=== PATIENT | female | born 1980 | race African-American/Black ===

== ENCOUNTER 2016-04-20 09:48 | Emergency (ER) | payer MEDICARE, MEDICAID ==
[~2016-04-20] VITALS: Ht 167.6 cm; Wt 74.8 kg
[~2016-04-20 09:48] MED LIST: ACETAMINOPHEN-1 EAC2 ORAL; ALBUTEROL SULF8.5 GM INH; BENADRYL ITCH28.3 G1 TOPIC; BENADRYL25 M1 PO; BENADRYL25 MG PO; FLONASE1 SPRAYS NASAL; LEVAQUIN500 MG ORAL; METRONIDAZOLE500 MG ORAL; NORCO 10-325 T1 EACH PO; NORCO 5-325 TA1 EACH ORAL; NORCO 5/3251 TAB ORAL; PHENERGAN25 M1 PO; PREDNISONE20 MG PO; TRAMADOL HCL50 MG ORAL; TYLENOL #31 TAB PO; VICODIN1 TAB PO; ZITHROMAX250 MG PO
[2016-04-20] MEDS ORDERED: NKM (09:58)
--- NOTE | 2016-04-20 10:15 | Emergency Room Report ---
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 And has multiple falls She feels that her legs essentially tripped on each other and she fell to the left side She also complained of headache Fairly diffuse denies any loss of consciousness denies any chest pain or shortness of breath Head and neck pain are 4/10 without other radiation Allergies: Coded Allergies: ASPIRIN (Verified Allergy, Unknown, 04/20/16) IBUPROFEN (Verified Allergy, Unknown, 04/20/16) PENICILLINS (Verified Allergy, Unknown, 04/20/16) Patient History Past Medical History: see triage record Pertinent Family History: none Last Menstrual Period: april 09 Now: No : 0 Para: 0 Reviewed Nursing Documentation: PMH: Agreed, PSxH: Agreed Nursing Documentation-PMH Hx Asthma: Yes Hx Gastrointestinal Problems: Yes - cerbral palsy migraines,ACID REFLUX Hx Neurological Problems: Yes - cerebral palsy, migraine Review of Systems All Other Systems: negative except mentioned in HPI Physical Exam Vital Signs Date Time Temp Pulse Resp B/P Pulse Ox O2 Delivery O2 Flow Rate FiO2 04/20/16 09:53 98.1 81 18 124/85 99 Sp02 EP Interpretation: reviewed, normal General Appearance: well appearing, no apparent distress Head: normocephalic, atraumatic Eyes: bilateral eye EOMI, bilateral eye PERRL ENT: hearing grossly normal, normal pharynx, TMs + canals normal, uvula midline , other - Poor dentition Neck: full range of motion, supple, no meningismus, no bony tend - The patient was uncomfortable on palpation left paracervical area C3-4-5 Respiratory: lungs clear, normal breath sounds, no rhonchi, no respiratory distress, no retraction, no accessory muscle use Cardiovascular #1: normal peripheral pulses, regular rate, rhythm, no edema, no gallop, no JVD, no murmur Gastrointestinal: normal bowel sounds, non tender, soft, no mass, no organomegaly, non-distended, no guarding, no hernia, no pulsatile mass, no rebound Genitourinary: no CVA tenderness Musculoskeletal: other - Patient has chronic findings with her cerebral palsy, has a shuffling gait Neurologic: oriented x3, responsive, sensory intact Psychiatric: mood/affect normal Skin: normal color, no rash, warm/dry, palpation normal Lymphatic: normal inspection, no adenopathy Medical Decision Making Diagnostic Impression: Primary Impression: Dizziness Additional Impression: Neck sprain ER Course Patient's imaging study was benign Patient continues to do well she has had multiple medications at different facilities I did discuss with her the safety in prescription campaign And the patient will have close outpatient followup Other X-Ray Diagnostic Results Other X-Ray Diagnostic Results : EP Interpretation: Yes Findings: no fractures, no dislocation, no soft tissue swelling Number of Views: 3 - Limited three-view C-spine Last Vital Signs Date Time Temp Pulse Resp B/P Pulse Ox O2 Delivery O2 Flow Rate FiO2 04/20/16 09:53 98.1 81 18 124/85 99 Status: improved Disposition: HOME, SELF-CARE Condition: Improved Scripts Acetaminophen With Codeine (T#3) (TYLENOL #3 TAB*) Y Tab 1 TAB ORAL Q8H Y for For Pain, #5 TAB Prov: FLORIDA PADILLA D.O. 04/20/16 Additional Instructions: Patient is provided with the discharge instructions notified to follow up with primary doctor in the next 2-3 days otherwise return to the er with any worsening symptoms. FLORIDA PADILLA D.O. Apr 20, 2016 10:15
[2016-04-20 10:26] VITALS: BP 124/85
[2016-04-20] MEDS ORDERED: Norco 5mg/325mg tab ORAL ONE (10:30)
[2016-04-20] MEDS ORDERED: ACETAMINOPHEN-1 EAC1 ORAL (10:51)
[2016-04-20 10:57] VITALS: BP 122/85
--- NOTE | 2016-04-20 11:09 | Diagnostic Imaging Report ---
Indication: Neck Pain Findings: 3 views of the cervical spine were obtained. Mild degenerative changes of the cervical spine are demonstrated. This is characterized by vertebral endplate osteophyte formation and narrowing of intervertebral discs. There is no acute fracture obviously identified. Alignment is normal. The open-mouth odontoid view shows an intact dens and good alignment of the lateral masses with respect to the body of C2. There is no soft tissue swelling. Impression: Mild spondylosis The study is limited by motion
== END 2016-04-20 11:01 | disposition home or self-care (01) ==
LOC: EMR 10:16
DX: R42 Dizziness and giddiness (principal); S16.1XXA Strain of muscle, fascia and tendon at neck level, initial encounter; W01.0XXA Fall on same level from slipping, tripping and stumbling without subsequent striking against object, initial encounter; Y92.9 Unspecified place or not applicable; Z88.0 Allergy status to penicillin; Z87.19 Personal history of other diseases of the digestive system; R51 Headache
CPT/HCPCS: 72040; 99283

== ENCOUNTER 2016-05-21 17:47 | Emergency (ER) | payer MEDICARE, MEDICAID ==
[~2016-05-21] VITALS: Ht 167.6 cm; Wt 74.8 kg
[~2016-05-21 17:47] MED LIST changes: +ACETAMINOPHEN-1 EAC1 ORAL; +NKM
[2016-05-21 18:03] VITALS: BP 149/110
[2016-05-21 18:42] LABS: APPEARANCE,URINE CLOUDY; KETONES,URINE NEGATIVE (NEGATIVE); LEUKOCYTE ESTERASE ,URINE 3+ (NEGATIVE); NITRITE,URINE NEGATIVE (NEGATIVE); PH,URINE 6 (4.5-8.0); PROTEIN,URINE 1+ (NEGATIVE); UROBILINOGEN,URINE NORMAL MG/DL (0.0-1.0)
[2016-05-21 18:48] LABS: BACTERIA,URINE MANY /HPF; SQUAMOUS EPITHELIAL CELL,UR MANY /LPF (NONE/OCC); WBC,URINE 15-20 /HPF (0 - 2)
[2016-05-21] MEDS ORDERED: PREDNISONE50 MG ORAL (19:11)
[2016-05-21] MEDS ORDERED: BROMFED DM COU118 ML PO (19:11)
[2016-05-21] MEDS ORDERED: ZYRTEC10 MG ORAL (19:11)
[2016-05-21] MEDS ORDERED: FLONASE ALLERG9.9 ML NS (19:11)
--- NOTE | 2016-05-21 19:13 | Emergency Room Report ---
History of Present Illness General Chief Complaint: General Complaint Source: Patient Present Illness HPI 35-year-old who complains of URI sxs x 2 days. Assoc sxs include sore throat, neck pain, low back pain, cough d/t post nasal drip, nasal congestion, facial pain and pressure, bilateral ear pain, pain behind the left ear that travels down to the neck, body aches, and chills. Patient states that 2000 mg of Tylenol at 2 PM without improvement of symptoms. States that she's taking any other medications that there are no other physical complaints at this time. Denies any current n/v/f/c/d, abd pain, CP, SOB or headache. Allergies: Coded Allergies: ASPIRIN (Verified Allergy, Unknown, 04/20/16) IBUPROFEN (Verified Allergy, Unknown, 04/20/16) PENICILLINS (Verified Allergy, Unknown, 04/20/16) Patient History Past Medical History: see triage record Past Surgical History: none Pertinent Family History: none Last Menstrual Period: 04/04/16 Now: No Immunizations: UTD Reviewed Nursing Documentation: PMH: Agreed, PSxH: Agreed Nursing Documentation-PMH Past Medical History: No History, Except For Hx Asthma: Yes Hx Gastrointestinal Problems: Yes - cerbral palsy migraines,ACID REFLUX Review of Systems All Other Systems: negative except mentioned in HPI Physical Exam Vital Signs Date Time Temp Pulse Resp B/P Pulse Ox O2 Delivery O2 Flow Rate FiO2 05/21/16 17:55 98.1 87 15 149/110 100 Room Air Sp02 EP Interpretation: reviewed, normal General Appearance: no apparent distress, alert, GCS 15, non-toxic Head: normocephalic, atraumatic Eyes: bilateral eye PERRL, bilateral eye normal inspection ENT: hearing grossly normal, normal pharynx, no angioedema, normal voice, TMs + canals normal, uvula midline Neck: full range of motion, supple/symm/no masses, tender - palpation of the neck Respiratory: chest non-tender, lungs clear, normal breath sounds, speaking full sentences Cardiovascular #1: regular rate, rhythm, no edema Gastrointestinal: non tender, soft Rectal: deferred Genitourinary: normal inspection, no CVA tenderness Musculoskeletal: back normal, gait/station normal, normal range of motion, non- tender, calf tenderness Neurologic: alert, oriented x3, responsive, foreign agent III-XII nml as tested, motor strength/tone normal, sensory intact, speech normal, no Babinski Psychiatric: judgement/insight normal, memory normal, mood/affect normal, no suicidal/homicidal ideation Skin: normal color, no rash, warm/dry, well hydrated Lymphatic: no adenopathy Medical Decision Making PA Attestation Dr. Turner is my supervising physician with whom patient management has been discussed with. Diagnostic Impression: Primary Impression: Upper respiratory tract infection Qualified Codes: J06.9 - Acute upper respiratory infection, unspecified; B97.89 - Other viral agents as the cause of diseases classified elsewhere Additional Impressions: Sinus pain Urinary tract infection ER Course Pt. presents to the ED c/o of neck pain, cough and congestion Ddx considered but are not limited to meningitis, bronchitis, pneumonia, viral upper respiratory tract infection Vital signs: are WNL, pt. is afebrile H&PE are most consistent with viral upper respiratory tract infection ORDERS: CT Head w/o contrast, UA, Urine Preg ED INTERVENTIONS: Tylenol 1000mg DISCHARGE: At this time pt. is stable for d/c to home. Will provide printed patient care instructions, and any necessary prescriptions. Care plan and follow up instructions have been discussed with the patient prior to discharge. Laboratory Tests Test 05/21/16 18:30 Urine Color Yellow Urine Appearance Cloudy Urine pH 6 (4.5-8.0) Urine Specific [place] 1.015 (1.005-1.035) Urine Protein 1+ (NEGATIVE) H Urine Glucose (UA) Negative (NEGATIVE) Urine Ketones Negative (NEGATIVE) Urine Occult Blood 1+ (NEGATIVE) H Urine Nitrite Negative (NEGATIVE) Urine Bilirubin Negative (NEGATIVE) Urine Urobilinogen Normal MG/DL (0.0-1.0) Urine Leukocyte Esterase 3+ (NEGATIVE) H Urine RBC 2-4 /HPF (0 - 2) H Urine WBC 15-20 /HPF (0 - 2) H Urine Squamous Epithelial Cells Many /LPF (NONE/OCC) H Urine Bacteria Many /HPF (NONE) H Urine HCG, Qualitative Negative CT/MRI/US Diagnostic Results CT/MRI/US Diagnostic Results : Imaging Test Ordered: CT Scan Head w/o Contrast Impression Normal Last Vital Signs Date Time Temp Pulse Resp B/P Pulse Ox O2 Delivery O2 Flow Rate FiO2 05/21/16 18:03 98.1 15 149/110 100 Room Air 2/18/17 17:55 87 Status: unchanged Disposition: HOME, SELF-CARE Condition: Stable Scripts Nitrofurantoin Monohyd/M-Cryst* (MACROBID 100 MG*) 100 Mg Capsule 100 MG ORAL EVERY 12 HOURS for 7 Days, #14 CAP Prov: SABRY,TAMEEM P.A. 05/21/16 Fluticasone Propionate (Flonase Allergy Relief) 9.9 Ml [place].susp 2 SPRAYS NS DAILY for 7 Days, #10 ML Prov: SABRY,TAMEEM P.A. 05/21/16 Cetirizine Hcl* (ZYRTEC*) 10 Mg Tablet 10 MG ORAL DAILY, #14 TAB 0 Refills Prov: SABRY,TAMEEM P.A. 05/21/16 D-Methorphan Hb/P-Epd Hcl/Bpm (BROMFED DM COUGH SYRUP) 118 Ml Syrup 5 ML PO Q8HR for For Cough for 7 Days, #120 ML Prov: SABRY,TAMEEM P.A. 05/21/16 Prednisone* (PREDNISONE*) 50 Mg Tablet 50 MG ORAL DAILY, #5 TAB 0 Refills Prov: SABRY,TAMEEM P.A. 05/21/16 Referrals: NOT CHOSEN [facility]/MD,REFERRING (PCP) Patient Instructions: Sinus Headache, Upper Respiratory Infection, Adult Additional Instructions: Take medication as directed. Drink plenty of fluids which include Gatorade and water. Get plenty of rest. Avoid taking medications on an empty stomach. If you have cough avoid dairy and cold beverages. If you have a fever, headache or body aches please take [id number] tylenol/motrin/advil unless a prescription for these symptoms have been given. If your symptoms are worsening or you have shortness or breath, severe headaches or chest pain, please call 911 or go to the ER. Advised patient to go to the ER immediately if you experience a headache that is sudden and becomes severe within a few seconds or minutes, or that could be described as "the worst headache of your life", or if headache is severe and occurs with a fever or stiff neck, occurs with a seizure , personality changes, confusion, or passing out, begins quickly after strenuous exercise or minor injury, or if headache is new and occurs with weakness, numbness, or difficulty seeing. While migraine headaches can sometimes cause these symptoms, you should be evaluated urgently the first time these symptoms appear. Return sooner if sxs worsen or do not improve. BLANKA MENDEZ May 21, 2016 19:13
[2016-05-21] MEDS ORDERED: NITROFURANTOIN100 M2 ORAL (19:27)
[2016-05-21] MEDS ORDERED: Acetaminophen 500mg (ES) tab ORAL ONE (19:30)
[2016-05-21 19:34] VITALS: BP 141/89
--- NOTE | 2016-05-23 10:53 | Diagnostic Imaging Report ---
\H\CT Brain without Intravenous Contrast INDICATION: \N\Headache.\H\ COMPARISON: \N\Head CT dated 07/17/13.\H\ TECHNIQUE: Serial axial images were obtained from the the skull base through the vertex without intravenous contrast. Coronal reformats were obtained. Dose Estimate: Total DLP \N\1404\H\ mGycm CTDIvol \N\70\H\ mGy FINDINGS: The looney white matter differentiation appears normal. There is no evidence of acute intracranial hemorrhage or territorial infarct. The cortical sulci, ventricles and extra-axial CSF spaces are normal in size for patient's age. There is no space occupying lesion, mass effect or midline shift. The visualized paranasal sinuses and mastoid air cells are clear. The osseous structures are unremarkable. \N\\H\IMPRESSION: 1. No acute intracranial hemorrhage, midline shift or mass effect. \N\
== END 2016-05-21 19:34 | disposition home or self-care (01) ==
LOC: EMR 18:16
DX: J06.9 Acute upper respiratory infection, unspecified (principal); B97.89 Other viral agents as the cause of diseases classified elsewhere; N39.0 Urinary tract infection, site not specified; Z88.6 Allergy status to analgesic agent; Z88.0 Allergy status to penicillin; J45.909 Unspecified asthma, uncomplicated; K21.9 Gastro-esophageal reflux disease without esophagitis
CPT/HCPCS: 70450; 81001; 81025; 87086; 99284

== ENCOUNTER 2017-07-06 15:30 | Emergency (ER) | payer MEDICARE, MEDICAID ==
[~2017-07-06] VITALS: Ht 167.6 cm; Wt 74.8 kg
[~2017-07-06 15:30] MED LIST changes: +BROMFED DM COU118 ML PO; +FLONASE ALLERG9.9 ML NS; +NITROFURANTOIN100 M2 ORAL; +PREDNISONE50 MG ORAL; +ZYRTEC10 MG ORAL
--- NOTE | 2017-07-06 16:05 | Emergency Room Report ---
History of Present Illness General Chief Complaint: Headache Source: Patient, Medical Record Present Illness HPI 36-year-old female presents to the emergency department complaining of 8 out of 10 in severity frontal sinus headache described as constant pressure with associated nasal congestion, sneezing and an exacerbation of her asthma. Patient states that she has been around some dogs which she believes she is allergic to and may have instigated her symptoms. Patient denies fevers, chills , neck pain or stiffness. Patient is requesting a refill of her albuterol inhaler. Denies CP, Palpitations, LOC, AMS, dizziness, Changes in Vision, Sensation, paresthesias, or a sudden severe headache. Allergies: Coded Allergies: ASPIRIN (Verified Allergy, Unknown, 04/20/16) IBUPROFEN (Verified Allergy, Unknown, 04/20/16) PENICILLINS (Verified Allergy, Unknown, 04/20/16) Patient History Past Medical History: see triage record Past Surgical History: none Pertinent Family History: none Last Menstrual Period: 06/05/17 Now: No Reviewed Nursing Documentation: PMH: Agreed; PSxH: Agreed Nursing Documentation-PMH Past Medical History: No History, Except For Hx Asthma: Yes Hx Gastrointestinal Problems: Yes - cerbral palsy migraines,ACID REFLUX Review of Systems All Other Systems: negative except mentioned in HPI Physical Exam Vital Signs Date Time Temp Pulse Resp B/P (MAP) Pulse Ox O2 Delivery O2 Flow Rate FiO2 07/06/17 15:34 98.1 98 18 134/70 100 Room Air 98.1 Sp02 EP Interpretation: reviewed, normal General Appearance: no apparent distress, alert, GCS 15, non-toxic Head: normocephalic, atraumatic Eyes: bilateral eye normal inspection, bilateral eye PERRL ENT: hearing grossly normal, normal pharynx, normal voice, TMs + canals normal , uvula midline, nasal congestion, other - ttp to the bilateral frontal sinuses. Neck: full range of motion, no meningismus, no bony tend Respiratory: chest non-tender, lungs clear, normal breath sounds, no respiratory distress, no wheezing, speaking full sentences Cardiovascular #1: regular rate, rhythm Musculoskeletal: back normal, gait/station normal, normal range of motion, non- tender Neurologic: alert, oriented x3, responsive, motor strength/tone normal, sensory intact, speech normal, grossly normal Psychiatric: judgement/insight normal Skin: normal color, no rash, warm/dry, well hydrated Lymphatic: no adenopathy Medical Decision Making PA Attestation Dr. Mccoy is my supervising Physician whom patient management has been discussed with. Diagnostic Impression: Primary Impression: Sinus headache Additional Impressions: Allergic rhinitis Qualified Codes: J30.9 - Allergic rhinitis, unspecified Asthma Qualified Codes: J45.909 - Unspecified asthma, uncomplicated ER Course 36-year-old female presents to the emergency department complaining of 8 out of 10 in severity frontal sinus headache described as constant pressure with associated nasal congestion, sneezing and an exacerbation of her asthma. Patient states that she has been around some dogs which she believes she is allergic to and may have instigated her symptoms. Patient denies fevers, chills , neck pain or stiffness. Patient is requesting a refill of her albuterol inhaler. Denies CP, Palpitations, LOC, AMS, dizziness, Changes in Vision, Sensation, paresthesias, or a sudden severe headache. Ddx considered but are not limited to migraine, SAH, Mass lesion, Cluster KENNEDY, Tension KENNEDY, Post lumbar puncture KENNEDY, sinusitis just to name a few. Vital signs: are WNL, pt. is afebrile H&PE are most consistent with sinus congestion with associated KENNEDY. ORDERS: - none required at this time, dx is clinical. ED INTERVENTIONS: - none DISCHARGE: At this time pt. is stable for d/c to home. Will provide printed patient care instructions, and any necessary prescriptions. Care plan and follow up instructions have been discussed with the patient prior to discharge. Last Vital Signs Date Time Temp Pulse Resp B/P (MAP) Pulse Ox O2 Delivery O2 Flow Rate FiO2 07/06/17 15:34 98.1 98 18 134/70 100 Room Air 98.1 Disposition: HOME, SELF-CARE Condition: Stable Scripts Acetaminophen* (TYLENOL EXTRA STRENGTH*) 500 Mg Tablet 500 MG ORAL Q6H, #20 TAB 0 Refills Prov: Aisha Trejo P.A. 07/06/17 Albuterol Sulfate* (ALBUTEROL SULFATE MDI*) 8.5 Gm Hfa.aer.ad 2 PUFF INH Q3H, #1 INH 1 Refill Prov: Aisha Trejo P.A. 07/06/17 Cetirizine Hcl* (ZYRTEC*) 10 Mg Tablet 10 MG ORAL DAILY, #30 TAB 0 Refills Prov: Aisha Trejo 07/06/17 Oxymetazoline Hcl* (AFRIN*) 15 Ml Mist 2 SPRAY NASAL TWICE A DAY for 3 Days, #15 ML DO NOT USE FOR MORE THAN 3 CONSECUTIVE DAYS. Prov: Aisha Trejo 07/06/17 Patient Instructions: Sinus Headache Additional Instructions: Take medications as directed. --DO NOT USE FOR MORE THAN 3 CONSECUTIVE DAYS. Follow up with a Primary Care Provider in 3-5 days, even if your symptoms have resolved. --Please review list of primary care clinics, if you do not already have a primary care provider Return sooner to ED if new symptoms occur, or current symptoms become worse. - Please note that this Emergency Department Report was dictated using [employer] instructor technology software, occasionally this can lead to erroneous entry secondary to interpretation by the dictation equipment. Aisha Trejo Jul 06, 2017 16:05
[2017-07-06] MEDS ORDERED: ZYRTEC10 MG ORAL (16:10)
[2017-07-06] MEDS ORDERED: ALBUTEROL SULF8.5 GM INH (16:10)
[2017-07-06] MEDS ORDERED: AFRIN15 ML NASAL (16:10)
[2017-07-06] MEDS ORDERED: TYLENOL EXTRA500 MG ORAL (16:10)
[2017-07-06 16:45] VITALS: BP 116/77
== END 2017-07-06 16:45 | disposition home or self-care (01) ==
LOC: EMR 16:41
DX: R51 Headache (principal); J30.9 Allergic rhinitis, unspecified; J45.909 Unspecified asthma, uncomplicated; G80.8 Other cerebral palsy; Z88.0 Allergy status to penicillin; Z88.6 Allergy status to analgesic agent
CPT/HCPCS: 99284

== ENCOUNTER 2018-05-25 19:35 | Emergency (ER) | payer MEDICARE, MEDICAID ==
[~2018-05-25] VITALS: Ht 167.6 cm; Wt 77.1 kg
[~2018-05-25 19:35] MED LIST changes: +AFRIN15 ML NASAL; +TYLENOL EXTRA500 MG ORAL
--- NOTE | 2018-05-25 19:47 | NUR ---
ED Nurse Note: PT CAME TO ED FROM HOME C/O OF REDNESS ON BOTH EYES, PER PT SHE HAS BEEN EXPERIENCINTG CONGESTION AND HEADACHE FOR X3 DAYS. HEADACEH IS 7/10.
[2018-05-25 19:49] VITALS: BP 123/53
[2018-05-25] MEDS ORDERED: OPCON-A EYE DRO15 ML OP (20:10)
[2018-05-25] MEDS ORDERED: FLONASE ALLERG9.9 ML NS (20:10)
[2018-05-25] MEDS ORDERED: SUDAFED PE PRE1 EAC3 PO (20:10)
[2018-05-25] MEDS ORDERED: CHLOR-TRIMETON4 MG PO (20:10)
--- NOTE | 2018-05-25 20:14 | Emergency Room Report ---
History of Present Illness General Chief Complaint: Headache Source: Patient (Jeremi Watson) Present Illness HPI 37-year-old female patient presents the ER complaining of "I think I have a sinus infection". Reports is been having sinus pressure and congestion for the past 3 days. Reports developed a headache symptoms as a result. Reports frontal headache. Denies vomiting or vision changes. Denies neck pain. Denies fever, chest pain, shortness of breath. Reports that he woke up this morning with "both my eyes were red". Denies eye drainage. Denies wearing contacts. Denies eye discharge. Denies vision loss. States his been taking DayQuil and Tylenol at home for symptoms. Denies other aggravating or relieving factors. Denies joint pain. Denies dysuria. Denies drinking alcohol or drug use. Reports history of smoking, states that she is trying to quit. (Jeremi Watson) Allergies: Coded Allergies: ASPIRIN (Verified Allergy, Unknown, 04/20/16) IBUPROFEN (Verified Allergy, Unknown, 04/20/16) PENICILLINS (Verified Allergy, Unknown, 04/20/16) Patient History Past Medical History: see triage record Last Menstrual Period: 05/04/2018 Now: No Reviewed Nursing Documentation: PMH: Agreed; PSxH: Agreed (Jeremi Watson) Nursing Documentation-PMH Past Medical History: No History, Except For Hx Asthma: Yes Hx Gastrointestinal Problems: Yes - cerbral palsy migraines (Jeremi Watson) Review of Systems All Other Systems: negative except mentioned in HPI (Jeremi Watson) Physical Exam Vital Signs Date Time Temp Pulse Resp B/P (MAP) Pulse Ox O2 Delivery O2 Flow Rate FiO2 05/25/18 19:40 98.1 86 16 123/53 100 Room Air Sp02 EP Interpretation: reviewed, normal General Appearance: well appearing, no apparent distress, alert, GCS 15, non- toxic Head: normocephalic, atraumatic, other - Frontal and maxillary sinus tenderness to palpation bilaterally Eyes: left eye Scleral Injection; bilateral eye normal inspection, bilateral eye PERRL, bilateral eye EOMI ENT: hearing grossly normal, normal pharynx, no angioedema, normal voice, TMs + canals normal, uvula midline, moist mucus membranes, nasal congestion Neck: full range of motion Respiratory: lungs clear, normal breath sounds, no rhonchi, no respiratory distress, no accessory muscle use, no wheezing, speaking full sentences Cardiovascular #1: regular rate, rhythm, no edema Musculoskeletal: back normal, digits/nails normal, gait/station normal, normal range of motion, non-tender Neurologic: alert, oriented x3, responsive, predatory game hunter III-XII nml as tested, motor strength/tone normal, sensory intact, cerebellar normal, normal gait, speech normal Psychiatric: mood/affect normal Skin: no rash Lymphatic: no adenopathy (Jeremi WatsonAYadira) Medical Decision Making PA Attestation Dr. Leyva is my supervising Physician whom patient management has been discussed with. (Jeremi Watson P.AYadira) Diagnostic Impression: Primary Impression: Sinusitis Additional Impression: Conjunctivitis ER Course Pt. presents to the ED c/o sinus pressure, headache, conjunctival injection bilaterally. Ddx considered but are not limited to allergic conjunctivitis, viral conjunctivitis, bacterial conjunctivitis, periorbital cellulitis, URI, sinusitis , keratitis, glaucoma. No reduction in VA, no cilliary flush, no photophobia, no FB sensation, no corneal opacity, low suspicion for keratitis, iritis. No vomiting, no fixed pupil, no reduction of VA, no ciliary flush, low suspicion for angle closure glaucoma. See nurses note for visual acuity. Vital signs: are WNL, pt. is afebrile Patient has no signs of surrounding cellulitis, low suspicion for preseptal cellulitis, does not require imaging at this time. ER COURSE: No focal neuro deficits, cranial nerves intact as tested, does not require CT at this time. Denies neck pain, afebrile, low suspicion for meningitis. Frontal maxillary sinuses tender to palpation, consistent with sinusitis, will provide patient with medication to treat. Provided with Afrin in the ER. Does not require antibiotics at this time. Bilateral conjunctival injection, no drainage, no fever, low suspicion for bacterial etiology of symptoms, will provide patient with eyedrops for probable viral conjunctivitis. Signs and symptoms consistent with conjunctivitis. F/u with ophthalmology and regulatory administrator. Follow-up with ENT specialist. ER precautions given. Seen and evaluated by Dr. Leyva, agrees with assessment treatment plan. Stop smoking. DISCHARGE: Rx provided for Chlor-Trimeton Rx provided for Sudafed Rx provided for Flonase Rx provided for Naphcon-A At this time pt. is stable for d/c to home. Patient is resting comfortably, in no acute distress, nontoxic appearing, talking and smiling without difficulty. Will provide printed patient care instructions, and any necessary prescriptions. Patient instructed to follow up with training officer and discuss further follow up with ophthalmology and regulatory administrator. Care plan and follow up instructions have been discussed with the patient prior to discharge. Patient questions asked and answered. Patient reports understanding and agreement to treatment plan. ER precautions given. Patient instructed to return to ER immediately for any new or worsening of symptoms including but not limited to vision loss, fever, changes in vision. - Please note that this Emergency Department Report was dictated using Cephason[employer] instructor technology software, occasionally this can lead to erroneous entry secondary to interpretation by the dictation equipment. (Jeremi Watson) ER Course Patient examined by me. I agree with assessment and treatment plan. (Don Leyva MD) Last Vital Signs Date Time Temp Pulse Resp B/P (MAP) Pulse Ox O2 Delivery O2 Flow Rate FiO2 05/25/18 19:49 98.1 86 16 123/53 100 Room Air Status: improved (Jeremi Watson) Disposition: HOME, SELF-CARE Condition: Stable Scripts Chlorpheniramine Maleate (CHLOR-TRIMETON) 4 Mg Tablet 4 MG PO TID, #30 TAB Prov: Jeremi Watson 05/25/18 Naphazoline Hcl/Pheniramine (OPCON-A EYE DROPS) 15 Ml Drops 15 ML OP BID, #15 ML Prov: Jeremi Watson 05/25/18 Fluticasone Propionate (Flonase Allergy Relief) 9.9 Ml Keaton.susp 9.9 ML NS BID, #9.9 ML Prov: Jeremi Watson 05/25/18 Guaifen/Phenyleph/Acetaminophn (Sudafed PE Pressure+Pain+Mucus) 1 Each Tablet 1 EACH PO BID, #24 TAB Prov: Jeremi Watson 05/25/18 Patient Instructions: Allergic Conjunctivitis, [id number], Sinus Headache, Sinusitis, Adult, [id number], Viral Conjunctivitis Additional Instructions: Followup with primary care provider in 3 -5 days. Wash hands thoroughly and consistently at home. Avoid excessive eye contact. Follow with intensive care specialist. Advised on use of humidifier. Drink plenty fluids. Take Tylenol for pain. Take medications as directed. Patient questions asked and answered. ER precautions given, patient instructed to return to ER immediately for any new or worsening of symptoms. Jeremi Watson May 25, 2018 20:14 Don Leyva MD May 26, 2018 06:13
[2018-05-25] MEDS ORDERED: Oxymetazoline 0.05% Na Spray 30ml NASAL ONE (20:15)
[2018-05-25 20:22] VITALS: BP 123/53
--- NOTE | 2018-05-25 20:22 | NUR ---
ED Nurse Note: Patient is cleared to be discharged per ERMD, pt is aox4, on room air, with stable vital signs. pt was given dc and prescription instructions, pt was able to verbalize understanding, pt id band. pt is able to ambulate with steady gait. pt took all belongings.
== END 2018-05-25 20:22 | disposition home or self-care (01) ==
LOC: EMR 20:12
DX: J32.9 Chronic sinusitis, unspecified (principal); H10.9 Unspecified conjunctivitis; J45.909 Unspecified asthma, uncomplicated; G80.9 Cerebral palsy, unspecified
CPT/HCPCS: 99283

== ENCOUNTER 2018-08-10 14:30 | Emergency (ER) | payer MEDICARE, MEDICAID ==
[~2018-08-10] VITALS: Ht 167.6 cm; Wt 74.8 kg
[~2018-08-10 14:30] MED LIST changes: +CHLOR-TRIMETON4 MG PO; +OPCON-A EYE DRO15 ML OP; +SUDAFED PE PRE1 EAC3 PO
[2018-08-10 14:34] VITALS: BP 146/75
[2018-08-10 14:40] VITALS: BP 146/75
[2018-08-10] MEDS ORDERED: CLINDAMYCIN HC300 MG ORAL (14:51)
--- NOTE | 2018-08-10 15:08 | Emergency Room Report ---
History of Present Illness General Chief Complaint: Pain Source: Patient Present Illness HPI Patient presents with complaints of what she feels is sinus infection complaints of increased pressure and discomfort to the right maxillary area Reports of the symptoms been ongoing for the past 6 weeks Denies any other headache denies any visual changes denies any chest pain or shortness of breath denies any sore throat deep pressure in the right maxilla is rated as 5 out of 10 pressure Denies any recent travel or trauma Patient has been seen several times for sinusitis reports that she does not have a primary physician Allergies: Coded Allergies: ASPIRIN (Verified Allergy, Unknown, 04/20/16) IBUPROFEN (Verified Allergy, Unknown, 04/20/16) PENICILLINS (Verified Allergy, Unknown, 04/20/16) Patient History Past Medical History: see triage record Pertinent Family History: none Last Menstrual Period: 08/01/18 Now: No Reviewed Nursing Documentation: PMH: Agreed; PSxH: Agreed Nursing Documentation-PMH Past Medical History: No History, Except For Hx Asthma: Yes Hx Gastrointestinal Problems: Yes - cerbral palsy migraines Review of Systems All Other Systems: negative except mentioned in HPI Physical Exam Vital Signs Date Time Temp Pulse Resp B/P (MAP) Pulse Ox O2 Delivery O2 Flow Rate FiO2 08/10/18 14:34 98.2 96 21 100 Room Air Sp02 EP Interpretation: reviewed, normal General Appearance: well appearing, no apparent distress Head: normocephalic, atraumatic Eyes: bilateral eye PERRL, bilateral eye EOMI ENT: hearing grossly normal, normal pharynx, TMs + canals normal, uvula midline , other - Increased discomfort on palpation of the right maxilla no obvious masses or palpable fluctuance Neck: full range of motion, supple, no meningismus, no bony tend Respiratory: lungs clear, normal breath sounds, no rhonchi, no respiratory distress, no retraction, no accessory muscle use Cardiovascular #1: normal peripheral pulses, regular rate, rhythm, no edema, no gallop, no JVD, no murmur Gastrointestinal: normal bowel sounds, non tender, soft, no mass, no organomegaly, non-distended, no guarding, no hernia, no pulsatile mass, no rebound Genitourinary: no CVA tenderness Musculoskeletal: normal inspection Neurologic: oriented x3, responsive, supervisor alteration workroom III-XII nml as tested, motor strength/ tone normal, sensory intact Psychiatric: mood/affect normal Skin: normal color, no rash, warm/dry, palpation normal Lymphatic: normal inspection, no adenopathy Medical Decision Making Diagnostic Impression: Primary Impression: sinusitis ER Course Patient's symptoms are over 1 month She does have discomfort over the maxillary area I feel that the patient is a candidate at this point for antibiotic coverage And patient was provided with medicine for close outpatient follow-up Last Vital Signs Date Time Temp Pulse Resp B/P (MAP) Pulse Ox O2 Delivery O2 Flow Rate FiO2 08/10/18 14:34 98.2 96 21 100 Room Air Status: unchanged Disposition: HOME, SELF-CARE Condition: Stable Scripts Clindamycin Hcl (CLINDAMYCIN HCL) 300 Mg Capsule 300 MG ORAL THREE TIMES A DAY for 14 Days, #42 CAP Prov: Juan Miguel Mccoy DO 08/10/18 Referrals: [facility] Patient Instructions: Sinusitis, Adult, Ayha-hy-Osog Additional Instructions: Patient is provided with the discharge instructions notified to follow up with primary doctor in the next 2-3 days otherwise return to the er with any worsening symptoms. Please note that this report is being documented using [employer] technology. This can lead to erroneous entry secondary to incorrect interpretation by the dictating instrument. Juan Miguel Mccoy DO August 10, 2018 15:08
== END 2018-08-10 15:20 | disposition home or self-care (01) ==
LOC: EMR 15:02
DX: J32.9 Chronic sinusitis, unspecified (principal); J45.909 Unspecified asthma, uncomplicated; Z88.0 Allergy status to penicillin; Z88.6 Allergy status to analgesic agent
CPT/HCPCS: 99282

== ENCOUNTER 2019-01-18 10:43 | Emergency (ER) | payer MEDICARE, MEDICAID ==
[~2019-01-18] VITALS: Ht 167.6 cm; Wt 74.8 kg
[~2019-01-18 10:43] MED LIST changes: +CLINDAMYCIN HC300 MG ORAL
--- NOTE | 2019-01-18 10:59 | Emergency Room Report ---
History of Present Illness General Chief Complaint: Pain Source: Patient Present Illness HPI Presents with left-sided flank pain. In the past she has had urinary tract infections. She does not believe she is at this time. She also has a slight sore throat. There is no discharge at this time. The pain is rated eight 8/10 and aching and fairly constant. It worsens somewhat when she changes position. She denies fevers or chills. No nausea, vomiting or diarrhea. No anterior abdominal pain. No chest pain, palpitations, shortness of breath, joint pain, rashes, depression , anxiety, visual changes, headache. The patient has a history of cerebral palsy Allergies: Coded Allergies: ASPIRIN (Verified Allergy, Unknown, 04/20/16) IBUPROFEN (Verified Allergy, Unknown, 04/20/16) PENICILLINS (Verified Allergy, Unknown, 04/20/16) Patient History Past Medical History: see triage record Social History: Reports: smoking; Denies: alcohol use, drug use Social History Narrative From home Last Menstrual Period: 01/01/19 Reviewed Nursing Documentation: PMH: Agreed; PSxH: Agreed Nursing Documentation-PMH Past Medical History: No History, Except For Hx Asthma: Yes Hx Gastrointestinal Problems: Yes - cerbral palsy migraines Review of Systems All Other Systems: negative except mentioned in HPI Physical Exam Vital Signs Date Time Temp Pulse Resp B/P (MAP) Pulse Ox O2 Delivery O2 Flow Rate FiO2 01/18/19 10:47 97.9 88 18 138/78 (98) 97 Room Air Sp02 EP Interpretation: reviewed, normal General Appearance: well appearing, no apparent distress, GCS 15 Head: normocephalic Eyes: bilateral eye normal inspection, bilateral eye PERRL ENT: moist mucus membranes - Poor dentition Neck: supple Respiratory: lungs clear, normal breath sounds Cardiovascular #1: regular rate, rhythm Cardiovascular #2: 2+ radial (L) Gastrointestinal: normal inspection, normal bowel sounds, soft, overweight Genitourinary: CVA tenderness (L) Musculoskeletal: gait/station normal Neurologic: alert, oriented x3, motor weakness - Minimal right side Psychiatric: mood/affect normal Skin: no rash, warm/dry Medical Decision Making Diagnostic Impression: Primary Impression: UTI (urinary tract infection) Qualified Codes: N39.0 - Urinary tract infection, site not specified ER Course Patient presents with left-sided flank pain with a history of urinary tract infections. Differential includes pyelonephritis, urinary tract infection, flank muscle strain, renal stone amongst others. The patient is not toxic at this time and is afebrile. She also complains of a mild sore throat. The patient declines pain medication at this time. Urinalysis with pyuria. Antibiotics begun. Patient needs to be covered for possibility of pyelonephritis and therefore fluoroquinolones are indicated. Patient was advised to have a low threshold to follow-up in the emergency department if not doing well. She was advised to see her physicians soon. Patient still declined pain medication. She is stable for outpatient observation and treatment. Labs Test 01/18/19 11:45 Urine Color Yellow Urine Appearance Slightly cloudy Urine pH 6 (4.5-8.0) Urine Specific Flasher 1.020 (1.005-1.035) Urine Protein 2+ (NEGATIVE) Urine Glucose (UA) Negative (NEGATIVE) Urine Ketones 1+ (NEGATIVE) Urine Blood 5+ (NEGATIVE) Urine Nitrite Positive (NEGATIVE) Urine Bilirubin Negative (NEGATIVE) Urine Urobilinogen Normal MG/DL (0.0-1.0) Urine Leukocyte Esterase 3+ (NEGATIVE) Urine RBC 2-4 /HPF (0 - 2) Urine WBC 5-10 /HPF (0 - 2) Urine Squamous Epithelial Cells Moderate /LPF (NONE/OCC) Urine Bacteria Many /HPF (NONE) Urine HCG, Qualitative Negative (NEGATIVE) Last Vital Signs Date Time Temp Pulse Resp B/P (MAP) Pulse Ox O2 Delivery O2 Flow Rate FiO2 01/18/19 14:23 98.2 82 16 122/69 100 Room Air Status: improved Disposition: HOME, SELF-CARE Condition: Improved Scripts Acetaminophen (Tylenol) 325 Mg Tablet 650 MG ORAL Q6H PRN for Prn Pain/Headache/Temp > 101, #20 TAB 0 Refills Prov: Don Leyva MD 01/18/19 Ciprofloxacin Hcl* (CIPROFLOXACIN HCL*) 500 Mg Tablet 500 MG ORAL Q12H, #20 TAB 0 Refills Prov: Don Leyva MD 01/18/19 Don Leyva MD Jan 18, 2019 10:59
--- NOTE | 2019-01-18 11:03 | NUR ---
ED Nurse Note: Pt walked in ED from home, AOx4, c/o pain on left lower back since yesterday. Denies any trauma/injury. No prolems urinating, per patient. Placed in hospital gown.
[2019-01-18 11:09] VITALS: BP 138/78
--- NOTE | 2019-01-18 11:54 | NUR ---
ED Nurse Note: Urine sample collected and sent down to lab.
[2019-01-18 12:17] LABS: APPEARANCE,URINE SLIGHTLY CLOUDY; BILIRUBIN, URINE NEGATIVE (NEGATIVE); GLUCOSE, URINE (UA) NEGATIVE (NEGATIVE); KETONES,URINE 1+ (NEGATIVE); LEUKOCYTE ESTERASE ,URINE 3+ (NEGATIVE); NITRITE,URINE POSITIVE (NEGATIVE); PH,URINE 6 (4.5-8.0); PROTEIN,URINE 2+ (NEGATIVE); UROBILINOGEN,URINE NORMAL MG/DL (0.0-1.0)
[2019-01-18 12:19] LABS: COLOR,URINE YELLOW
[2019-01-18] MEDS ORDERED: Ciprofloxacin 500mg tab ORAL ONE (13:00)
[2019-01-18] MEDS ORDERED: CIPROFLOXACIN500 M2 ORAL (13:52)
[2019-01-18] MEDS ORDERED: TYLENOL325 MG ORAL (13:52)
--- NOTE | 2019-01-18 13:55 | NUR ---
ER DISCHARGE NOTE: Patient is cleared to be discharged per ERMD, pt is aox4, on room air, with stable vital signs. pt was given dc and prescription instructions, pt was able to verbalize understanding, pt id band removed without complications. pt is able to ambulate with steady gait. pt took all belongings.
[2019-01-18 14:23] VITALS: BP 122/69
== END 2019-01-18 13:55 | disposition home or self-care (01) ==
LOC: EMR 12:21
DX: N39.0 Urinary tract infection, site not specified (principal); J45.909 Unspecified asthma, uncomplicated; G80.9 Cerebral palsy, unspecified; F17.200 Nicotine dependence, unspecified, uncomplicated; Z88.6 Allergy status to analgesic agent; Z88.8 Allergy status to other drugs, medicaments and biological substances; Z88.0 Allergy status to penicillin; Z87.440 Personal history of urinary (tract) infections
CPT/HCPCS: 81003; 81025; 87086; 87181; 99283

== ENCOUNTER 2019-04-13 12:15 | Emergency (ER) | payer MEDICARE, MEDICAID ==
[~2019-04-13] VITALS: Ht 167.6 cm; Wt 74.8 kg
[~2019-04-13 12:15] MED LIST changes: +CIPROFLOXACIN500 M2 ORAL; +TYLENOL325 MG ORAL
--- NOTE | 2019-04-13 12:27 | NUR ---
ED Nurse Note: Pt walked in from home c/o sore throat and painful cough x 2 days. Pt is having difficulty swallowing. Respirations even and unlabored on room air. Vitals stable as documented.
[2019-04-13 12:29] VITALS: BP 152/86
--- NOTE | 2019-04-13 12:36 | Emergency Room Report ---
History of Present Illness General Chief Complaint: Sore Throat Source: Patient Present Illness HPI 38-year-old female presents to the emergency department complaining of 9 out of 10 severity sore throat, pain with swallowing, swollen tender lymph nodes and a cough x2 days. Patient reports history of asthma and that she has been having to use her inhaler more than usual. Patient denies fever she reports some chills she denies ear pain she reports nasal congestion initially which has improved but now she has a sore throat. Denies headache, photophobia, neck pain /stiffness. She reports she was using Chloraseptic at home with no relief. Other past medical history include cerebral palsy on the right side. Denies CP, SOB, palpitations, Dizziness, or sudden onset of a KENNEDY. Allergies: Coded Allergies: ASPIRIN (Verified Allergy, Unknown, 04/20/16) IBUPROFEN (Verified Allergy, Unknown, 04/20/16) PENICILLINS (Verified Allergy, Unknown, 04/20/16) Patient History Past Medical History: see triage record Past Surgical History: none Pertinent Family History: none Now: No Reviewed Nursing Documentation: PMH: Agreed; PSxH: Agreed Nursing Documentation-PMH Past Medical History: No History, Except For Hx Asthma: Yes Hx Gastrointestinal Problems: Yes - cerbral palsy migraines Review of Systems All Other Systems: negative except mentioned in HPI Physical Exam Vital Signs Date Time Temp Pulse Resp B/P (MAP) Pulse Ox O2 Delivery O2 Flow Rate FiO2 04/13/19 12:19 98.2 105 18 152/86 (108) 97 Room Air Sp02 EP Interpretation: reviewed, normal General Appearance: no apparent distress, alert, GCS 15, non-toxic Head: normocephalic, atraumatic Eyes: bilateral eye normal inspection, bilateral eye PERRL ENT: hearing grossly normal, normal voice, TMs + canals normal, uvula midline, moist mucus membranes, nasal congestion, tonsillar swelling, pharyngeal erythema , tonsillar exudate Neck: full range of motion, no meningismus, no bony tend Respiratory: lungs clear, normal breath sounds, speaking full sentences, wheezing - scant wheezing Cardiovascular #1: regular rate, rhythm, no edema Gastrointestinal: non tender, soft Rectal: deferred Genitourinary: normal inspection Musculoskeletal: back normal, normal range of motion, gait/station normal, non- tender Neurologic: alert, motor strength/tone normal, oriented x3, sensory intact, responsive, speech normal Psychiatric: judgement/insight normal Lymphatic: no adenopathy Medical Decision Making PA Attestation Dr. Mccoy is my supervising Physician whom patient management has been discussed with. Diagnostic Impression: Primary Impression: Acute bacterial pharyngitis Additional Impression: History of asthma ER Course 38-year-old female presents to the emergency department complaining of 9 out of 10 severity sore throat, pain with swallowing, swollen tender lymph nodes and a cough x2 days. Patient reports history of asthma and that she has been having to use her inhaler more than usual. Patient denies fever she reports some chills she denies ear pain she reports nasal congestion initially which has improved but now she has a sore throat. Denies headache, photophobia, neck pain /stiffness. She reports she was using Chloraseptic at home with no relief. Other past medical history include cerebral palsy on the right side. Denies CP, SOB, palpitations, Dizziness, or sudden onset of a KENNEDY. Ddx considered but are not limited to: pharyngitis, strep, LACQUER SIZER, ludwigs angina, URI Vital signs: are WNL, pt. is afebrile H&PE are most consistent with: pharyngitis presumed strep. ORDERS: None required at this time as the diagnosis is clinical ED INTERVENTIONS: none required at this time. DISCHARGE: At this time pt. is stable for d/c to home. Will provide printed patient care instructions, and any necessary prescriptions. Care plan and follow up instructions have been discussed with the patient prior to discharge. Last Vital Signs Date Time Temp Pulse Resp B/P (MAP) Pulse Ox O2 Delivery O2 Flow Rate FiO2 04/13/19 12:29 98.2 85 18 152/86 97 Room Air Disposition: HOME, SELF-CARE Condition: Stable Patient Instructions: Tonsillitis Additional Instructions: Take medications as directed. Follow up with a Primary Care Provider in 3-5 days, even if your symptoms have resolved. --Please review list of primary care clinics, if you do not already have a primary care provider Return sooner to ED if new symptoms occur, or current symptoms become worse. Do not drink alcohol, drive, or operate heavy machinery while taking Cough Syrup as this may cause drowsiness. - Please note that this Emergency Department Report was dictated using [employer] security specialist technology software, occasionally this can lead to erroneous entry secondary to interpretation by the dictation equipment. Aisha Trejo Apr 13, 2019 12:36
[2019-04-13] MEDS ORDERED: LIDOCAINE VISC100 ML ORAL ×3 (12:37→13:06)
[2019-04-13] MEDS ORDERED: PROMETHAZINE-C118 M1 ORAL (12:37)
[2019-04-13] MEDS ORDERED: ALBUTEROL SULF8.5 GM INH ×3 (12:37→13:06)
[2019-04-13] MEDS ORDERED: ZITHROMAX250 MG ORAL ×3 (12:37→13:06)
--- NOTE | 2019-04-13 13:08 | NUR ---
ER DISCHARGE NOTE: Patient is cleared to be discharged per ERMD, pt is aox4, on room air, with stable vital signs as documented. pt was given dc and prescription instructions and able to verbalize understanding, pt id band removed. pt is able to ambulate with steady gait. pt taking all belongings.
[2019-04-13 13:09] VITALS: BP 149/87
== END 2019-04-13 13:10 | disposition home or self-care (01) ==
LOC: EMR 12:41
DX: J02.9 Acute pharyngitis, unspecified (principal); J45.909 Unspecified asthma, uncomplicated; G80.9 Cerebral palsy, unspecified; Z88.6 Allergy status to analgesic agent; Z88.0 Allergy status to penicillin; Z79.51 Long term (current) use of inhaled steroids
CPT/HCPCS: 99281

== ENCOUNTER 2019-05-28 10:26 | Emergency (ER) | payer MEDICARE, MEDICAID ==
[~2019-05-28] VITALS: Ht 167.6 cm; Wt 77.1 kg
[~2019-05-28 10:26] MED LIST changes: +LIDOCAINE VISC100 ML ORAL; +PROMETHAZINE-C118 M1 ORAL; +ZITHROMAX250 MG ORAL
--- NOTE | 2019-05-28 11:08 | Emergency Room Report ---
History of Present Illness General Chief Complaint: Upper Extremity Injury Source: Patient Present Illness HPI Disclaimer: Please note that this report is being documented using DRAGON technology. This can lead to erroneous entry secondary to incorrect interpretation by the dictating instrument. HPI: 38-year-old [id number] female presents for evaluation of right wrist and hand pain. Patient fell on uneven pavement yesterday forward onto an outstretched right hand. Noted pain and swelling over the base of the thumb. Difficulty with extension of the thumb. Difficult to be with flexion extension at the wrist. Pain in the wrist is centered over the radial aspect. Denies any skin breakdown. No prior history of hand injury. Allergies: Coded Allergies: ASPIRIN (Verified Allergy, Unknown, 04/20/16) IBUPROFEN (Verified Allergy, Unknown, 04/20/16) PENICILLINS (Verified Allergy, Unknown, 04/20/16) Patient History Last Menstrual Period: 05-20 Nursing Documentation-[facility] Past Medical History: No History, Except For Hx Asthma: Yes Hx Gastrointestinal Problems: Yes - cerbral palsy Review of Systems All Other Systems: negative except mentioned in HPI Physical Exam Vital Signs Date Time Temp Pulse Resp B/P (MAP) Pulse Ox O2 Delivery O2 Flow Rate FiO2 05/28/19 10:39 98.1 80 20 123/65 (84) 98 General: Awake and alert, no acute distress HEENT: NC/AT. EOMI. Resp: Normal work of breathing Skin: Intact. No abrasions, laceration or rash over the exposed skin MSK: Normal tone and bulk. Moving all extremities. No obvious deformity. Tender to palpation over the anatomic snuffbox and base of the first metacarpal on the right hand. Mild tenderness over the MCP J as well. No obvious deformity. No significant tenderness over the ulnar aspect of the wrist but there is tenderness over the radial aspect. Limitation to flexion extension secondary to pain as well as abduction of the thumb. Sensation intact in the other digits. Capillary refill is brisk in all digits less than 2 seconds. 2+ radial pulses. Neuro: Awake and alert. Mentating appropriately Procedures Splinting Splinting : Pre-Made Type: velcro Splint: thumb spica Pre-Proc Neuro Vasc Exam: normal Post-Proc Neuro Vasc Exam: normal Patient Tolerated: Well Complications: None Medical Decision Making Diagnostic Impression: Primary Impression: Injury of right hand ER Course This a 38-year-old [id number] female presenting for evaluation after a fall injury on her right hand yesterday. Concern for fracture and dislocation x -ray was ordered. No evidence of fracture or dislocation was found. Given the patient's anatomic snuffbox tenderness she was placed in a thumb spica. She will have repeat imaging next week. Discussed need for follow-up with her PMD. Discussed reasons to return to the emergency department. She understands and agrees with the treatment plan. Last Vital Signs Date Time Temp Pulse Resp B/P (MAP) Pulse Ox O2 Delivery O2 Flow Rate FiO2 05/28/19 10:39 98.1 80 20 123/65 (84) 98 Disposition: HOME, SELF-CARE Condition: Stable Kolby Swann MD May 28, 2019 11:08
[2019-05-28 11:09] VITALS: BP 123/65
--- NOTE | 2019-05-28 11:10 | NUR ---
ED Nurse Note:pt. had mechanical fall and right wrist is hurting
--- NOTE | 2019-05-28 12:23 | Diagnostic Imaging Report ---
Indication: Right hand pain Findings: 3 views of the right hand were obtained. Normal bony mineralization and alignment are demonstrated. No acute fractures, erosions, or periosteal reaction are seen. Soft tissues are unremarkable. Impression: No acute findings.
--- NOTE | 2019-05-28 12:24 | Diagnostic Imaging Report ---
Indication: Right wrist pain COMPARISON: None Findings: 3 views of the right wrist were obtained. No acute fractures, malalignment, erosions or periostitis are identified. Soft tissues are unremarkable. Impression: No acute findings.
[2019-05-28 12:40] VITALS: BP 123/65
--- NOTE | 2019-05-28 12:40 | NUR ---
ER DISCHARGE NOTE: Patient is cleared to be discharged per ERMD, pt is aox4, on room air, with stable vital signs. pt was given dc and prescription instructions, pt was able to verbalize understanding, pt is able to ambulate with steady gait. pt took all belongings.
== END 2019-05-28 12:40 | disposition home or self-care (01) ==
LOC: EMR 12:40
DX: S69.91XA Unspecified injury of right wrist, hand and finger(s), initial encounter (principal); G80.9 Cerebral palsy, unspecified; J45.909 Unspecified asthma, uncomplicated; W01.0XXA Fall on same level from slipping, tripping and stumbling without subsequent striking against object, initial encounter; Y93.01 Activity, walking, marching and hiking; Y92.480 Sidewalk as the place of occurrence of the external cause; Z88.0 Allergy status to penicillin; Z88.6 Allergy status to analgesic agent
CPT/HCPCS: 29125; 99284